=== PATIENT | female | born 1990 | race Caucasian/White ===

== ENCOUNTER 2019-07-12 15:47 | Emergency (ER) | payer OTHER ==
[~2019-07-12] VITALS: Ht 157.5 cm; Wt 99.8 kg
[2019-07-12 15:53] VITALS: BP 155/69
[2019-07-12] MEDS ORDERED: TAMIFLU75 MG PO (18:16)
[2019-07-12] MEDS ORDERED: TESSALON PERLE100 MG PO (18:16)
== END 2019-07-12 18:54 ==
LOC: ER 15:47
DX: J11.1 Influenza due to unidentified influenza virus with other respiratory manifestations (principal)

== ENCOUNTER 2019-07-30 11:16 | Emergency (ER) | payer OTHER ==
[~2019-07-30] VITALS: Ht 157.5 cm; Wt 99.8 kg
[~2019-07-30 11:16] MED LIST: TAMIFLU75 MG PO; TESSALON PERLE100 MG PO
[2019-07-30 11:18] VITALS: BP 117/71
[2019-07-30] MEDS ORDERED: MOBIC7.5 MG PO (11:51)
== END 2019-07-30 12:09 | disposition home or self-care (01) ==
LOC: ER 11:16
DX: M70.842 Other soft tissue disorders related to use, overuse and pressure, left hand (principal); Y93.89 Activity, other specified

== ENCOUNTER 2020-02-25 20:50 | Emergency (ER) | payer OTHER ==
[~2020-02-25] VITALS: Ht 162.6 cm; Wt 99.8 kg
[~2020-02-25 20:50] MED LIST changes: +MOBIC7.5 MG PO
[2020-02-25 22:07] VITALS: BP 117/67
== END 2020-02-25 22:21 | disposition home or self-care (01) ==
LOC: ER 20:50
DX: J06.9 Acute upper respiratory infection, unspecified (principal); Z20.828 Contact with and (suspected) exposure to other viral communicable diseases; R19.7 Diarrhea, unspecified; E66.01 Morbid (severe) obesity due to excess calories